=== PATIENT | male | born 1955 | race Two or more races ===

== ENCOUNTER 2023-06-23 10:12 | Inpatient (IN) | payer MEDICARE, OTHER ==
[~2023-06-23] VITALS: Ht 175.3 cm; Wt 113.6 kg
[2023-06-23 10:39] LABS: Basophils # (auto) 0.1 10 ^3/uL (0-0.2); Basophils % (auto) 0.7 % (0.0-2.0); Eosinophils # (auto) 0.3 10 ^3/uL (0-0.8); Hematocrit 48.7 % (41.0-53.0); Hemoglobin 16.5 g/dL (13.5-17.5); Lymphocytes # (auto) 2.7 10 ^3/uL (0.4-5.4); Lymphocytes % (auto) 29.7 % (10.0-50.0); Mean Corpuscular Volume 88.4 fL (80.0-100.0); Monocytes # (auto) 0.6 10 ^3/uL (0-1.3); Monocytes % (auto) 6.3 % (0.0-12.0); Neutrophils # (auto) 5.4 10 ^3/uL (1.6-8.6); Neutrophils % (auto) 60.3 % (37.0-80.0); Nucleated Red Blood Cells % 0.3 %; Red Blood Cells 5.51 10^6/uL (4.5-5.90); Red Cell Distribution Width 13.8 % (11.8-14.3)
[2023-06-23 11:00] LABS: Alanine Aminotransferase 19 U/L (7-40); Albumin 4.2 g/dL (3.2-4.8); Alkaline Phosphatase 98 U/L (46-116); Anion Gap 5 (5-15); Aspartate Aminotransferase 10 U/L (13-40); Bilirubin, Total 1.2 mg/dL (0.2-1.0); Blood Urea Nitrogen 15 mg/dL (9-23); Calcium 9.5 mg/dL (8.5-10.1); Carbon Dioxide 30 mmol/L (20-30); Chloride 102 mmol/L (98-107); Glucose 195 mg/dL (74-106); Potassium 4.8 mmol/L (3.5-5.1); Sodium 137 mmol/L (136-145)
[2023-06-23] MEDS ORDERED: SODIUM CHLORIDE 0.9% 500 ML IV ONE (11:45)
[2023-06-23 12:24] LABS: Magnesium 1.4 mg/dL (1.6-2.6)
[2023-06-23] MEDS ORDERED: LOSA100T58 PO (12:36)
[2023-06-23] MEDS ORDERED: SILD20TA2 PO (12:36)
[2023-06-23] MEDS ORDERED: DAPA1TAB4 PO (12:36)
[2023-06-23] MEDS ORDERED: GLIM4TAB42 PO (12:36)
[2023-06-23] MEDS ORDERED: SEMA14TA2 PO (12:36)
[2023-06-23] MEDS ORDERED: ATOR10TA52 PO (12:36)
[2023-06-23] MEDS ORDERED: MORPHINE SULFATE INJ 2 MG/ml SYRG IV PRN (12:45)
[2023-06-23] MEDS ORDERED: SODIUM CHLORIDE 0.9% 1,000 ML IV ONE (12:45)
[2023-06-23] MEDS ORDERED: ACETAMINOPHEN 325 MG TAB PO PRN (12:45)
[2023-06-23] MEDS ORDERED: NITROGLYCERIN 0.4 MG SL TAB SL PRN (12:45)
[2023-06-23] MEDS ORDERED: DEXTROSE (50%) 50ML SYRG IV PRN (12:45)
[2023-06-23] MEDS ORDERED: ONDANSETRON HCL 4 MG/2 ML VIAL IV PRN (12:45)
[2023-06-23] MEDS ORDERED: SODIUM CHLORIDE 0.9% 1,000 ML IV SCH (12:45)
[2023-06-23 12:56] VITALS: BP 83/30; TEMP 97.5
[2023-06-23 12:58] VITALS: PULSE 77; RESP 16; O2SAT 96
[2023-06-23] MEDS ORDERED: ASPirin 325 MG TAB PO ONE (13:15)
[2023-06-23 13:45] LABS: COVID19 ANTIGEN SOFIA FIA NEGATIVE (NEGATIVE)
[2023-06-23 13:49] LABS: Triglycerides 188 mg/dL (< 150)
[2023-06-23 13:50] LABS: LDL Cholesterol 81 mg/dL (< 100)
[2023-06-23 13:51] LABS: Cholesterol 142 mg/dL (< 200); HDL Cholesterol 29 mg/dL (40-59)
[2023-06-23] MEDS ORDERED: ACCU-CHEK COMFORT CURVE STRIP VI SCH (17:00)
[2023-06-23] MEDS ORDERED: InsuLIN REG 1unit/0.01ml Soln (100units/ml) SC SCH (17:00)
[2023-06-24] MEDS ORDERED: ASPirin 81 mg TAB PO SCH (10:00)
[2023-06-24] MEDS ORDERED: ENOXAPARIN SOD 40 MG/0.4 ML SYRINGE SC SCH (10:00)
[2023-06-24] MEDS ORDERED: ATORVASTATIN 20 MG TAB PO SCH (10:00)
== END 2023-06-26 13:38 | disposition left against medical advice (07) | DRG 69 ==
LOC: ER 10:12 → TELE 12:35
PROVIDERS: ADMIT Internal Medicine Pulmonary Disease; ATTEND Student in an Organized Health Care Education/Training Program
DX: G45.9 Transient cerebral ischemic attack, unspecified (principal); E66.01 Morbid (severe) obesity due to excess calories; E78.5 Hyperlipidemia, unspecified; Z53.29 Procedure and treatment not carried out because of patient's decision for other reasons; Z20.822 Contact with and (suspected) exposure to COVID-19; I10 Essential (primary) hypertension; E11.9 Type 2 diabetes mellitus without complications; I95.9 Hypotension, unspecified; Z71.3 Dietary counseling and surveillance; Z68.37 Body mass index [BMI] 37.0-37.9, adult
CPT/HCPCS: 36415; 70450; 71046; 80053; 80061; 83036; 83735; 84443; 84484; 85025; 87426; 93005; 96360; G0378